=== PATIENT | male | born 1990 | race African-American/Black ===

== ENCOUNTER 2017-07-23 04:49 | Emergency (ER) | payer SELFPAY ==
[~2017-07-23] VITALS: Ht 175.3 cm; Wt 55.0 kg
[2017-07-23 05:02] VITALS: BP 107/65; PULSE 87; RESP 18; TEMP 97.4; O2SAT 97
[2017-07-23] MEDS ORDERED: ZOLO25TA PO (05:12)
[2017-07-23] MEDS ORDERED: SERO25TA PO (05:12)
--- NOTE | 2017-07-23 05:23 | PD ---
HPI Chief Complaint: Psychiatric Symptoms Time Seen by Provider: 05:20 Travel History International Travel<30 days: No Contact w/Intl Traveler<30days: No Traveled to known affect area: No History of Present Illness HPI 27-year-old male who was sent here by [facility] for psychiatric evaluation. She was placed under Wagner act which says that he was having delusional thoughts and he was aggressive and agitated towards staff. He was medically cleared at [facility]. The patient has no complaints at this time and would like to sleep. PFSH Past Medical History Depression: Yes Diabetes: No Patient Takes Glucophage: No Diminished Hearing: No Psychiatric: Yes (PTSD) Immunizations Current: Yes Tetanus Vaccination: < 5 Years Influenza Vaccination: No Past Surgical History Surgical History: No Previous Surgery Social History Alcohol Use: No Tobacco Use: Yes (1PPD) Substance Use: No Allergies-Medications (Allergen,Severity, Reaction): Coded Allergies: egg (Verified Allergy, Unknown, 07/23/17) Reported Meds & Prescriptions Reported Meds & Active Scripts Active Reported Seroquel (Quetiapine Fumarate) 25 Mg Tab 25 Mg PO BID Zoloft (Sertraline HCl) 25 Mg Tab 25 Mg PO DAILY Review of Systems Except as stated in HPI: all other systems reviewed are Neg Physical Exam Narrative GENERAL: Well-developed well-nourished male who is sleeping but arousable. SKIN: Warm and dry. HEAD: Atraumatic. Normocephalic. EYES: Pupils equal and round. No scleral icterus. No injection or drainage. ENT: No nasal bleeding or discharge. Mucous membranes pink and moist. NECK: Trachea midline. No JVD. CARDIOVASCULAR: Regular rate and rhythm. No murmur appreciated. RESPIRATORY: No accessory muscle use. Clear to auscultation. Breath sounds equal bilaterally. GASTROINTESTINAL: Abdomen soft, non-tender, nondistended. Hepatic and splenic margins not palpable. MUSCULOSKELETAL: No obvious deformities. No clubbing. No cyanosis. No edema. NEUROLOGICAL: Awake and alert. No obvious cranial nerve deficits. Motor grossly within normal limits. Normal speech. Data Data Last Documented VS Vital Signs Date Time Temp Pulse Resp B/P (MAP) Pulse Ox O2 Delivery O2 Flow Rate FiO2 07/23/17 05:02 97.4 87 18 107/65 (79) 97 MDM Medical Decision Making Medical Screen Exam Complete: Yes Emergency Medical Condition: Yes Medical Record Reviewed: Yes Differential Diagnosis Acute psychosis, substance-induced mood disorder, adjustment reaction, schizophrenia Narrative Course The patient was medically cleared at [facility]. Diagnosis Primary Impression: Medical clearance for psychiatric admission aSl Tamayo Jul 23, 2017 05:23
[2017-07-23 08:12] VITALS: BP 108/59; PULSE 88; RESP 18; O2SAT 95
[2017-07-23 11:35] VITALS: BP 99/55; PULSE 96; RESP 18; O2SAT 96
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
--- NOTE | 2017-07-23 13:42 | PD ---
Physical Exam Date Seen by Provider: Jul 23, 2017 Time Seen by Provider: 13:41 Narrative Patient was seen by psychiatrist and Wagner Act was lifted. Patient denies any suicidal or homicidal ideation. Patient states he is ready to go home. Data Data Last Documented VS Vital Signs Date Time Temp Pulse Resp B/P (MAP) Pulse Ox O2 Delivery O2 Flow Rate FiO2 07/23/17 11:35 96 18 99/55 (70) 96 Room Air 07/23/17 05:02 97.4 Orders Orders Psych Screen (07/23/17 05:24) Diet Regular Basic (07/23/17 Breakfast) ^ Other Nursing Orders (07/23/17 13:32) MDM Supervised Visit with GARETT: No Diagnosis Primary Impression: Medical clearance for psychiatric admission Referrals: Psychiatrist call for appointment Patient Instructions: General Instructions Additional Instruction: Follow up with your psychiatrist. Return to the emergency department for any acute, worsening of symptoms. Med/Other Pt SpecificInfo: No Change to Meds Disposition: 01 DISCHARGE HOME Condition: Stable Jose MiguelCassie Jul 23, 2017 13:42
[2017-07-24] MEDS ORDERED: AZIT250T3 PO (23:56)
== END 2017-07-23 14:11 | disposition home or self-care (01) ==
LOC: NEPD 04:49 → NEPJ 14:11
DX: F19.10 Other psychoactive substance abuse, uncomplicated (principal); F17.200 Nicotine dependence, unspecified, uncomplicated; F32.9 Major depressive disorder, single episode, unspecified
CPT/HCPCS: 99284

== ENCOUNTER 2017-07-24 20:28 | Emergency (ER) | payer SELFPAY ==
[~2017-07-24 20:28] MED LIST: SERO25TA PO; ZOLO25TA PO
[2017-07-24 20:35] VITALS: BP 101/63; PULSE 81; RESP 18; TEMP 98; O2SAT 99
--- NOTE | 2017-07-24 22:22 | PD ---
HPI Chief Complaint: Medical Clearance Time Seen by Provider: 22:19 Travel History International Travel<30 days: No Contact w/Intl Traveler<30days: No Traveled to known affect area: No History of Present Illness HPI This is a 27-year-old male with reported history of depression, schizophrenia, HIV, hepatitis B. He presents voluntarily requesting psychiatric evaluation. He reports that he is feeling suicidal, specifically he wants to run in front of traffic and kill himself. He reports that he is prescribed Seroquel and Zoloft however he has not been on his medication recently. In addition he is complaining of a cough which started yesterday and he is concerned that he has pneumonia. The cough is productive with clear and yellow sputum. No fevers or chills. Of note, this patient is homeless, was recently transferred from [facility] in [place] under Wagner act yesterday. When he was seen by the psychiatrist yesterday he was denying any suicidal ideation and he was discharged. He reports that he began feeling suicidal shortly after discharge. He has no psychiatrist that he follows with. The patient reports that he was diagnosed with HIV 2 months ago and he was also hoping to get some sort of follow-up with an infectious disease specialist scheduled. He is requesting to speak to the disease case manager rn about this. He has no other complaints. [facility] Past Medical History Depression: Yes Diabetes: No Diminished Hearing: No Psychiatric: Yes (PTSD) Immunizations Current: Yes ?: Not Past Surgical History Surgical History: No Previous Surgery Social History Alcohol Use: No Tobacco Use: Yes (1PPD) Substance Use: No Allergies-Medications (Allergen,Severity, Reaction): Coded Allergies: egg (Verified Allergy, Unknown, 07/23/17) Reported Meds & Prescriptions Reported Meds & Active Scripts Active Azithromycin 250 Mg Tab 250 Mg PO DAILY 4 Days Reported Seroquel (Quetiapine Fumarate) 25 Mg Tab 25 Mg PO BID Zoloft (Sertraline HCl) 25 Mg Tab 25 Mg PO DAILY Review of Systems Except as stated in HPI: all other systems reviewed are Neg Physical Exam Narrative GENERAL: This is a disheveled young male who is agitated. SKIN: Warm and dry. HEAD: Atraumatic. Normocephalic. EYES: Pupils equal and round. No scleral icterus. No injection or drainage. ENT: No nasal bleeding or discharge. Mucous membranes pink and moist. NECK: Trachea midline. No JVD. CARDIOVASCULAR: Regular rate and rhythm. No murmur appreciated. RESPIRATORY: No accessory muscle use. Clear to auscultation. Breath sounds equal bilaterally. GASTROINTESTINAL: Abdomen soft, non-tender, nondistended. Hepatic and splenic margins not palpable. MUSCULOSKELETAL: No obvious deformities. No clubbing. No cyanosis. No edema. NEUROLOGICAL: Awake and alert. No obvious cranial nerve deficits. Motor grossly within normal limits. Normal speech. PSYCHIATRIC: Agitated, anxious. Insight and judgment are questionable. Data Data Last Documented VS Vital Signs Date Time Temp Pulse Resp B/P (MAP) Pulse Ox O2 Delivery O2 Flow Rate FiO2 07/24/17 20:35 98.0 81 18 101/63 (76) 99 Orders Orders Complete Blood Count With Diff (07/24/17 22:19) Comprehensive Metabolic Panel (07/24/17 22:19) Thyroid Stimulating Hormone (07/24/17 22:19) Psych Screen (07/24/17 22:19) Drug Screen, Random Urine (07/24/17 22:19) Alcohol (Ethanol) (07/24/17 22:19) Chest, Pa & Lat (07/24/17 ) Azithromycin (Zithromax) (07/25/17 00:00) Labs Laboratory Tests Test 07/24/17 22:45 White Blood Count 15.7 TH/MM3 Red Blood Count 4.22 MIL/MM3 Hemoglobin 12.4 GM/DL Hematocrit 35.7 % Mean Corpuscular Volume 84.6 FL Mean Corpuscular Hemoglobin 29.3 PG Mean Corpuscular Hemoglobin Concent 34.7 % Red Cell Distribution Width 12.8 % Platelet Count 346 TH/MM3 Mean Platelet Volume 6.8 FL Neutrophils (%) (Auto) 77.6 % Lymphocytes (%) (Auto) 11.6 % Monocytes (%) (Auto) 9.7 % Eosinophils (%) (Auto) 0.7 % Basophils (%) (Auto) 0.4 % Neutrophils # (Auto) 12.1 TH/MM3 Lymphocytes # (Auto) 1.8 TH/MM3 Monocytes # (Auto) 1.5 TH/MM3 Eosinophils # (Auto) 0.1 TH/MM3 Basophils # (Auto) 0.1 TH/MM3 CBC Comment DIFF FINAL Differential Comment Blood Urea Nitrogen 13 MG/DL Creatinine 0.91 MG/DL Random Glucose 106 MG/DL Total Protein 8.1 GM/DL Albumin 3.4 GM/DL Calcium Level 8.9 MG/DL Alkaline Phosphatase 96 U/L Aspartate Amino Transf (AST/SGOT) 16 U/L Alanine Aminotransferase (ALT/SGPT) 25 U/L Total Bilirubin 0.5 MG/DL Sodium Level 136 MEQ/L Potassium Level 3.6 MEQ/L Chloride Level 99 MEQ/L Carbon Dioxide Level 26.9 MEQ/L Anion Gap 10 MEQ/L Estimat Glomerular Filtration Rate 119 ML/MIN Thyroid Stimulating Hormone 3rd Gen 0.924 uIU/ML Ethyl Alcohol Level LESS THAN 3 MG/DL [facility] Medical Decision Making Medical Screen Exam Complete: Yes Emergency Medical Condition: Yes Medical Record Reviewed: Yes Differential Diagnosis Acute psychosis, homelessness, schizophrenia, schizoaffective disorder, substance-induced mood disorder Narrative Course Plan is for lab work, chest x-ray. The disease case manager rn came and spoke with the patient has requested. Chest x-ray reveals patchy bilateral airspace disease, right greater than left characteristic broncho-pneumonia. The patient is not hypoxic, tachycardic or febrile. He does have a WBC count of 15.7 and will be started on antibiotics for pneumonia. First dose of azithromycin provided here and a prescription has been written. CMP is unremarkable. Alcohol level is less than 3. Plan is to have psychiatry see the patient. He is medically cleared. Diagnosis Primary Impression: Medical clearance for psychiatric admission Additional Impression: Pneumonia Scripts Azithromycin (Azithromycin) 250 Mg Tab 250 MG PO DAILY for Infection for 4 Days, #4 TAB 0 Refills Prov: Jas Dior MD 07/24/17 Sal Tamayo Jul 24, 2017 22:22
--- NOTE | 2017-07-24 22:50 | RADRPT ---
EXAM DATE/TIME: 07/24/2017 22:29 [place] COMPARISON: No previous studies available for comparison. INDICATIONS : Cough with chest tightness. MEDICAL HISTORY : None. SURGICAL HISTORY : None. ENCOUNTER: Initial ACUITY: 2 days PAIN SCORE: 10/10 LOCATION: Bilateral chest FINDINGS: There is patchy airspace disease in the right lung including the right upper lobe right middle and lo wer lobes. Questionable minimal left basilar opacity. No effusion or pneumothorax. CONCLUSION: 1. Patchy bilateral airspace disease, right greater than left characteristic of bronchopneumonia. Shine Kang MD on July 24, 2017 at 22:47 Board Certified Radiologist. This report was verified electronically.
[2017-07-24 22:57] LABS: AUTOMATED NEUTROPHIL # 12.1 TH/MM3 (1.8-7.7); BASOPHIL # 0.1 TH/MM3 (0-0.2); BASOPHIL % 0.4 % (0.0-2.0); EOSINOPHIL # 0.1 TH/MM3 (0-0.4); EOSINOPHIL % 0.7 % (0.0-4.0); HEMATOCRIT 35.7 % (39.0-51.0); HEMOGLOBIN 12.4 GM/DL (13.0-17.0); LYMPH % 11.6 % (9.0-44.0); LYMPHOCYTE # 1.8 TH/MM3 (1.0-4.8); MEAN CELL VOLUME 84.6 FL (80.0-100.0); MEAN CORPUSCULAR HEMOGLOBIN 29.3 PG (27.0-34.0); MEAN CORPUSCULAR HGB CONC 34.7 % (32.0-36.0); MEAN PLATELET VOLUME 6.8 FL (7.0-11.0); MONO % 9.7 % (0.0-8.0); MONOCYTE # 1.5 TH/MM3 (0-0.9); NEUT % 77.6 % (16.0-70.0); PLATELET COUNT 346 TH/MM3 (150-450); RED BLOOD COUNT 4.22 MIL/MM3 (4.50-5.90); RED CELL DISTRIBUTION WIDTH 12.8 % (11.6-17.2); WHITE BLOOD COUNT 15.7 TH/MM3 (4.0-11.0)
[2017-07-24 23:10] LABS: ALBUMIN 3.4 GM/DL (3.4-5.0); AST (GOT) 16 U/L (15-37); BICARBONATE 26.9 MEQ/L (21.0-32.0); BLOOD UREA NITROGEN 13 MG/DL (7-18); CALCIUM 8.9 MG/DL (8.5-10.1); CHLORIDE 99 MEQ/L (98-107); CREATININE 0.91 MG/DL (0.60-1.30); GLOMERULAR FILTRATION RATE 119 ML/MIN (>89); GLUCOSE,RANDOM 106 MG/DL (74-106); SODIUM (NA) 136 MEQ/L (136-145)
[2017-07-24 23:11] LABS: ALT (GPT) 25 U/L (12-78)
[2017-07-24 23:21] LABS: ALKALINE PHOSPHATASE 96 U/L (45-117); TOTAL BILIRUBIN ADULT 0.5 MG/DL (0.2-1.0); TOTAL PROTEIN 8.1 GM/DL (6.4-8.2)
[2017-07-24] MEDS ORDERED: AZIT250T3 PO (23:56)
--- NOTE | 2017-07-24 23:57 | PD ---
Data Data Last Documented VS Vital Signs Date Time Temp Pulse Resp B/P (MAP) Pulse Ox O2 Delivery O2 Flow Rate FiO2 07/24/17 20:35 98.0 81 18 101/63 (76) 99 Orders Orders Complete Blood Count With Diff (07/24/17 22:19) Comprehensive Metabolic Panel (07/24/17 22:19) Thyroid Stimulating Hormone (07/24/17 22:19) Psych Screen (07/24/17 22:19) Drug Screen, Random Urine (07/24/17 22:19) Alcohol (Ethanol) (07/24/17 22:19) Chest, Pa & Lat (07/24/17 ) Labs Laboratory Tests Test 07/24/17 22:45 White Blood Count 15.7 TH/MM3 Red Blood Count 4.22 MIL/MM3 Hemoglobin 12.4 GM/DL Hematocrit 35.7 % Mean Corpuscular Volume 84.6 FL Mean Corpuscular Hemoglobin 29.3 PG Mean Corpuscular Hemoglobin Concent 34.7 % Red Cell Distribution Width 12.8 % Platelet Count 346 TH/MM3 Mean Platelet Volume 6.8 FL Neutrophils (%) (Auto) 77.6 % Lymphocytes (%) (Auto) 11.6 % Monocytes (%) (Auto) 9.7 % Eosinophils (%) (Auto) 0.7 % Basophils (%) (Auto) 0.4 % Neutrophils # (Auto) 12.1 TH/MM3 Lymphocytes # (Auto) 1.8 TH/MM3 Monocytes # (Auto) 1.5 TH/MM3 Eosinophils # (Auto) 0.1 TH/MM3 Basophils # (Auto) 0.1 TH/MM3 CBC Comment DIFF FINAL Differential Comment Blood Urea Nitrogen 13 MG/DL Creatinine 0.91 MG/DL Random Glucose 106 MG/DL Total Protein 8.1 GM/DL Albumin 3.4 GM/DL Calcium Level 8.9 MG/DL Alkaline Phosphatase 96 U/L Aspartate Amino Transf (AST/SGOT) 16 U/L Alanine Aminotransferase (ALT/SGPT) 25 U/L Total Bilirubin 0.5 MG/DL Sodium Level 136 MEQ/L Potassium Level 3.6 MEQ/L Chloride Level 99 MEQ/L Carbon Dioxide Level 26.9 MEQ/L Anion Gap 10 MEQ/L Estimat Glomerular Filtration Rate 119 ML/MIN Thyroid Stimulating Hormone 3rd Gen 0.924 uIU/ML Ethyl Alcohol Level LESS THAN 3 MG/DL MDM Supervised Visit with GARETT: Yes Narrative Course The history, exam, and medical decision-making in the associated mid-level provider note were completed with my assistance. I reviewed and agree with the findings presented. I attest that I had a [id number] encounter with the patient on the same day, and personally performed and documented my assessment and findings in the medical record. *My assessment and Findings: 27-year-old man, reportedly history of HIV, patient's very disorganized and history is very difficult to discern. Complains of being treated for syphilis, out of meds for his HIV and psychiatric disease, states he needs to be on medicine to get his thinking straight so we can go back home with [place]. Reportedly came over from [place] couple nights ago. Not from the area here. Chest x-ray shows some patchy infiltrates. Vital signs are stable with no respiratory distress. We will treat him for pneumonia, recommend repeat evaluation for psychiatry given disorganized thinking now. Diagnosis Primary Impression: Polysubstance abuse Additional Impression: Pneumonia Jas Dior MD Jul 24, 2017 23:57
[2017-07-25] MEDS ORDERED: AZITHROMYCIN 250 MG TAB PO ONE
[2017-07-25] MEDS ORDERED: BENZONATATE 100 MG CAP PO ONE (05:30)
[2017-07-25 07:54] VITALS: BP 114/64; PULSE 88; RESP 17; O2SAT 98
--- NOTE | 2017-07-25 10:21 | PD ---
Physical Exam Date Seen by Provider: Jul 25, 2017 Time Seen by Provider: 10:19 Narrative 27-year-old male previously Wagner acted and medically cleared for psychiatric evaluation, has been seen and evaluated by Dr. Ann, the psychiatrist. Dr. Ann feels patient is psychiatrically stable for discharge. Patient was found to have possible pneumonia, and treated with azithromycin with prescription given. Follow-up will be based on Dr. Ann's note. Patient is to finish the azithromycin as prescribed and follow-up as needed Data Data Last Documented VS Vital Signs Date Time Temp Pulse Resp B/P (MAP) Pulse Ox O2 Delivery O2 Flow Rate FiO2 07/25/17 07:54 88 17 114/64 (81) 98 Room Air 07/24/17 20:35 98.0 Orders Orders Complete Blood Count With Diff (07/24/17 22:19) Comprehensive Metabolic Panel (07/24/17 22:19) Thyroid Stimulating Hormone (07/24/17 22:19) Psych Screen (07/24/17 22:19) Drug Screen, Random Urine (07/24/17 22:19) Alcohol (Ethanol) (07/24/17 22:19) Chest, Pa & Lat (07/24/17 ) Azithromycin (Zithromax) (07/25/17 00:00) Benzonatate (Tessalon) (07/25/17 05:30) Labs Laboratory Tests Test 07/24/17 22:45 White Blood Count 15.7 TH/MM3 Red Blood Count 4.22 MIL/MM3 Hemoglobin 12.4 GM/DL Hematocrit 35.7 % Mean Corpuscular Volume 84.6 FL Mean Corpuscular Hemoglobin 29.3 PG Mean Corpuscular Hemoglobin Concent 34.7 % Red Cell Distribution Width 12.8 % Platelet Count 346 TH/MM3 Mean Platelet Volume 6.8 FL Neutrophils (%) (Auto) 77.6 % Lymphocytes (%) (Auto) 11.6 % Monocytes (%) (Auto) 9.7 % Eosinophils (%) (Auto) 0.7 % Basophils (%) (Auto) 0.4 % Neutrophils # (Auto) 12.1 TH/MM3 Lymphocytes # (Auto) 1.8 TH/MM3 Monocytes # (Auto) 1.5 TH/MM3 Eosinophils # (Auto) 0.1 TH/MM3 Basophils # (Auto) 0.1 TH/MM3 CBC Comment DIFF FINAL Differential Comment Blood Urea Nitrogen 13 MG/DL Creatinine 0.91 MG/DL Random Glucose 106 MG/DL Total Protein 8.1 GM/DL Albumin 3.4 GM/DL Calcium Level 8.9 MG/DL Alkaline Phosphatase 96 U/L Aspartate Amino Transf (AST/SGOT) 16 U/L Alanine Aminotransferase (ALT/SGPT) 25 U/L Total Bilirubin 0.5 MG/DL Sodium Level 136 MEQ/L Potassium Level 3.6 MEQ/L Chloride Level 99 MEQ/L Carbon Dioxide Level 26.9 MEQ/L Anion Gap 10 MEQ/L Estimat Glomerular Filtration Rate 119 ML/MIN Thyroid Stimulating Hormone 3rd Gen 0.924 uIU/ML Ethyl Alcohol Level LESS THAN 3 MG/DL MDM Medical Record Reviewed: Yes Supervised Visit with GARETT: Yes Narrative Course 27-year-old male previously Wagner acted and medically cleared for psychiatric evaluation, has been seen and evaluated by Dr. Ann, the psychiatrist. Dr. Ann feels patient is psychiatrically stable for discharge. Patient was found to have possible pneumonia, and treated with azithromycin with prescription given. Follow-up will be based on Dr. Ann's note. Patient is to finish the azithromycin as prescribed and follow-up as needed Diagnosis Primary Impression: Medical clearance for psychiatric admission Additional Impression: Pneumonia Qualified Codes: J18.9 - Pneumonia, unspecified organism Patient Instructions: Azithromycin (By mouth), General Instructions Additional Instruction: Patient is to finish the azithromycin as prescribed and follow-up as needed Med/Other Pt SpecificInfo: Prescription(s) given Scripts Azithromycin (Azithromycin) 250 Mg Tab 250 MG PO DAILY for Infection for 4 Days, #4 TAB 0 Refills Prov: Jas Dior MD 07/24/17 Disposition: DISCHARGE HOME Condition: Stable Jadiel Elam Jul 25, 2017 10:21
[2017-07-25 11:59] VITALS: BP 121/63
== END 2017-07-25 12:01 | disposition home or self-care (01) ==
LOC: NEPD 20:28 → NEDAMB 07-25 12:01
DX: J18.9 Pneumonia, unspecified organism (principal); F19.10 Other psychoactive substance abuse, uncomplicated; F43.10 Post-traumatic stress disorder, unspecified; F17.200 Nicotine dependence, unspecified, uncomplicated; Z79.899 Other long term (current) drug therapy; Z21 Asymptomatic human immunodeficiency virus [HIV] infection status
CPT/HCPCS: 71046; 80053; 80307; 84443; 85025; 99284

== ENCOUNTER 2017-08-29 16:08 | Emergency (ER) | payer OTHER ==
[~2017-08-29 16:08] MED LIST changes: +AZIT250T3 PO
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
[2017-08-30 03:08] VITALS: BP 111/62; PULSE 73; RESP 18; TEMP 99.1; O2SAT 100
--- NOTE | 2017-08-30 10:00 | PD ---
Physical Exam Time Seen by Provider: 09:58 Narrative BENTLEY Montana has evaluated the patient, lifted the Wagner act and cleared the patient for discharge. Case management is involved in his trying to get transportation for the patient to get back to [place], where he came from. Data Data Last Documented VS Vital Signs Date Time Temp Pulse Resp B/P (MAP) Pulse Ox O2 Delivery O2 Flow Rate FiO2 08/30/17 03:08 99.1 73 18 111/62 (78) 100 Room Air Orders Orders Diet Regular Basic (08/29/17 Dinner) Diet Regular Basic (08/30/17 Breakfast) Diet Regular Basic (08/30/17 Lunch) Ed Discharge Order (08/30/17 09:58) MDM Supervised Visit with GARETT: No BENTLEY Lerner has evaluated the patient, lifted the Wagner act and cleared the patient for discharge. Case management is involved in his trying to get transportation for the patient to get back to [place], where he came from. Patient contracts safety. Denies suicidal or homicidal ideations. Patient will be provided community resource packet to /MANUEL for follow-up. Has friends and family for support. Patient was medically cleared by alternate provider prior to psych screening. Patient has been evaluated by psychiatry and and is now cleared for discharge. Diagnosis Primary Impression: Polysubstance abuse Additional Impression: Substance induced mood disorder Referrals: MANUEL (Out patient) [facility] Primary Care Physician Psychiatrist Elzbieta JACKSON Behavioral Patient Instructions: General Instructions, Polysubstance Abuse (ED) Additional Instruction: Contract safety to your self and others Stop using drugs Follow-up with psychiatry Follow-up with primary care provider Follow-up with Abdulkadir Downing Return to the emergency department immediately with worsening of symptoms Med/Other Pt SpecificInfo: No Change to Meds, No Meds Exist/No RX given Disposition: 01 DISCHARGE HOME Condition: Stable Coni Baires Aug 30, 2017 10:00
== END 2017-08-30 11:18 | disposition home or self-care (01) ==
LOC: NEPJ 16:08 → NEDAMB 08-30 11:18
DX: F19.14 Other psychoactive substance abuse with psychoactive substance-induced mood disorder (principal); F17.200 Nicotine dependence, unspecified, uncomplicated; F32.9 Major depressive disorder, single episode, unspecified; F43.10 Post-traumatic stress disorder, unspecified
CPT/HCPCS: 99283

== ENCOUNTER 2017-11-29 14:42 | Inpatient (IN) ==
[2017-11-29 18:39] VITALS: TEMP 97.7
[2017-11-29] MEDS ORDERED: Acetaminophen 325 MG Tablet PO PRN (20:36)
[2017-11-29 23:23] VITALS: RESP 16
[2017-11-30 06:21] VITALS: BP 95/53; PULSE 98; O2SAT 99
--- NOTE | 2017-11-30 11:51 | P.HPPSY ---
Provisional Diagnosis Admission Date: November 29, 2017 18:07 [place] [facility].: 1. Malingering for residential 2. Polysubstance abuse [place] [facility].: 1. Antisocial personality traits Competence Certification of Person's Competence To Provide Express and Informed Consent I have personally examined Delgado Sanderson, a person being served at [facility] on, November 30, 2017 1151. Express and informed consent means consent voluntarily given in writing, by a competent person, after sufficient explanation and disclosure of the subject matter involved to enable the person to make a knowing and willful decision without any element of force, fraud, deceit, duress, or other form of constraint or coercion. This person is 18 years of age or older, is not now known to be incompetent to consent to treatment with a guardian advocate, and does not have a health care surrogate or proxy currently making medical treatment decisions. I have found this person to be one of the following: [X] Competent to provide express and informed consent, as defined above, for voluntary admission to this facility and is competent to provide express and informed consent for treatment. He/she has the consistent capacity to make well reasoned, willful, and knowing decisions concerning his or her medical or mental health treatment. The person fully and consistently understands the purpose of the admission for examination/placement and is fully capable of personally exercising all rights assured [place] Incompetent to provide express and informed consent to voluntary admission, and this is incompetent to provide express and informed consent to treatment. The person must be transferred to involuntary status and a petition for a guardian advocate filed with the Circuit Court. [] Refusing to provide express and informed consent to voluntary admission but is competent to provide express and informed consent for treatment. The person must be discharged or transferred to involuntary status. Form shall be completed within 24 hours of a person's arrival at the receiving facility and filed in the clinical record of each person: 1. Admitted on a voluntary basis 2. Permitted to provide express and informed consent to his/her own treatment 3. Allowed to transfer from involuntary to voluntary status 4. Prior to permitting a person to consent to his or her own treatment after having been previously found incompetent to consent to treatment. History of Present Illness Capacity: Has capacity Chief Complaint: Wagner Act History of Present Illness: Mr. Sanderson is a 27 year-old male with a history of polysubstance abuse and drug- induced mood disorder who presents in transfer from [facility] under a Wagner Act. Documentation from outside hospital reviewed. Patient presented there complaining of suicidal ideation for 1 day and was requesting to be Wagner Acted. Patient is known to me from previous consultation in the ED earlier in the year. At that time he told me that he has gotten himself admitted to the inpatient psychiatric unit "for a place to sleep" (i.e. he malingered psychiatric symptoms for residential). He also has been seen by the check grader in the past. Electronic medical record reviewed. Patient seen and examined with counselor and nurse. Chart reviewed. Case discussed with nursing staff. Patient has been no behavioral problem on the unit. There has been no evidence of any suicidality or homicidality while patient has been under observation on the unit. On my examination today, patient is noted to be wearing a woman's wig and female clothes. He is singularly unengaged in interview. He expresses some interest in going to a residential chem dep program in [place] (he has been using MDMA most recently). He tells me that he feels psychiatrically well enough for discharge there today. He has no suicidal or homicidal ideation, intent or plan. He contracts for safety. He has no audiovisual hallucinations. He has no delusions. There is no evidence of any impairment in reality construction. I can elicit no depressive or hypomanic/manic symptoms. When it comes out that patient cannot go to this program because he has lost both his ID and social security card, patient claims to be experiencing auditory hallucinations saying "do it" and says he is experiencing suicidal ideation. No suicide plan. No suicidal intent. He does not appear at all internally stimulated. These symptoms are felt to be malingered with the goal of obtaining residential on the unit. Antisocial personality traits are noted. Remainder of the psychiatric ROS is negative. No acute physical complaints. Past psychiatric history: Patient not under the care of a psychiatrist. History of previous psychiatric admissions for residential. No history of suicide attempts. Most recently prescribed Seroquel. Family history: Patient tells me that his grandmother had "mental problems." I note that last time he told me it was his grandfather who had psychiatric issues. No reported history of suicide in the family. Chemical dependency history: Patient has been abusing MDMA most recently. He also has abused cannabis and cocaine in the past. Social history: The patient is homeless. He has a high school education. He has no income. He denies any history. Denies any legal history. Denies any access to guns or firearms. He is a Zoroastrian. He does allude to some vague trauma history but describes no PTSD symptoms at this time. - Inpatient Certification Plans for Post Hospital Care: Other (Correction) Review of Systems All other systems reviewed negative except as stated in HPI Quality Measures - Patient Strengths Patient's strengths (minimum of 2): Attending to basic needs. Verbally fluent. Medications and Allergies Active Medications: Active Medications Acetaminophen (Tylenol) 325 mg PO Q4H PRN PRN Reason: PAIN SCALE 1 TO 10 Diphenhydramine HCl (Benadryl) 50 mg PO HS [facility] Last Admin: 11/30/17 05:33 Dose: Not Given Hydroxyzine HCl (Atarax) 50 mg PO Q6H PRN PRN Reason: ANXIETY Allergies Allergy/AdvReac Type Severity Reaction Status Date / Time egg Allergy Unknown Verified 07/23/17 05:03 Results - Labs Labs: Laboratories from outside hospital reviewed: Urine toxicology negative. BMP reveals mild hypocalcemia at 8.2. CBC reveals mild leukopenia with a white blood cell count of 3.75. Hemoglobin is somewhat low at 11.9. Tylenol, salicylate and alcohol level are all undetectable. Exam Vital signs: Vital Signs 11/29/17 18:34 11/29/17 23:23 11/30/17 06:21 Temperature 97.7 F Pulse Rate 61 98 H Respiratory Rate 16 16 Blood Pressure 105/58 L 95/53 L Pulse Oximetry 99 Narrative: Physical examination completed by ED provider at outside hospital. On my examination today, the patient appears to be in no acute physical distress. No motor abnormalities noted. No signs of intoxication or withdrawal noted. Labs and vital signs reviewed. Mental Status Examination Appearance: Appropriate (female attire) Consciousness: Alert Orientation: x4 Motor Activity: Other (No motor abnormalities noted) Speech: Unremarkable Language: Adequate Fund of Knowledge: Adequate Attention and Concentration: Adequate Memory: Unremarkable (Grossly intact on clinical exam) Mood: Appropriate Affect: Blunt Thought Process & Associations: Intact, Logical, Goal directed, Linear Thought Content: Appropriate Hallucination Type: None (Claims AH to avert discharge. Before this, he had no AH. Does not appear internally stimulated.) Delusion Type: None Suicidal Ideation: No (Claims SI to avert discharge. Before this, he had no SI.) Suicidal Plan: No Suicidal Intention: No Homicidal Ideation: No Homicidal Plan: No Homicidal Intention: No Insight: Fair Judgment: Impulsive (Chronic condition) Assessment and Plan - Assessment (1) Malingering Code(s): Z76.5 - Malingerer [conscious simulation] Status: Acute (2) Polysubstance abuse Code(s): F19.10 - Other psychoactive substance abuse, uncomplicated Status: Acute - Plan Plan: 27 year-old male with psychiatric history as detailed above who presents in transfer from outside hospital under a Wagner Act. Patient initially claims no psychiatric symptoms and reports he is ready for discharge. When he learns his preferred discharge plan is not an option, he verbalizes AH and SI as noted above. These verbalizations are felt to represent malingering for residential. The patient himself has previously reported that he has gotten himself admitted to inpatient units elsewhere for a place to sleep, and I suspect he is endeavoring to do the same thing now. There is no evidence of sonido sterling unstable mental illness as defined under the Wagner Act in this patient at this time. There has been no evidence of suicidality or homicidality while the patient has been under observation on the inpatient unit. There is no evidence of self-care deficit from mental illness as defined under the Wagner act. Suicide and violence risk assessment both suggest lower imminent risk from sonido sterling mental illness. Synthesizing this information, I oracle application architect that the patient does not meet the Wagner Act criteria. Further, the patient does not meet criteria inpatient psychiatric hospitalization at the present time. He does have substance use issues and antisocial personality style. Both of these features confer chronic, but not acute or imminent risk for harm to self/ others. Neither chemical dependency issues nor antisocial personality style would be ameliorated by an general inpatient psychiatric hospital stay, and the patient will be referred for chemical dependency evaluation on discharge by the counselor in addition to receiving a referral for general mental health. Given that the patient is most likely malingering for residential, it is probable that he will continue to malinger psychiatric symptoms after discharge and may even make some sort of gesture to gain admission to the inpatient psychiatric unit. However, it would be counter-therapeutic to the patient's overall case to give in to these manipulations. I have counseled the patient to return to the psychiatric emergency room for any concerning psychiatric symptoms as part of a general safety plan. Patient is to be discharged today to a residential with follow-up as arranged by counselor. Patient is to follow up with primary care. Patient is to resume prior to admission psychotropic medication regimen, and I have provided no prescriptions on discharge. This note serves also as my discharge summary. Justification for Continued Inpatient Stay: N/A
== END 2017-11-30 13:18 | disposition home or self-care (01) ==
LOC: H270 18:07
PROVIDERS: ADMIT Psychiatry & Neurology Psychiatry; ATTEND Psychiatry & Neurology Psychiatry